=== PATIENT | female | born 1995 | race Caucasian/White ===

== ENCOUNTER 2021-02-19 06:55 | Outpatient (CLI) | payer BC, SELFPAY ==
--- NOTE | ~2021-02-19 | CT_ITS ---
EXAMINATION: CT abdomen w con DATE: 02/19/2021 07:44 INDICATION: Left upper quadrant abdominal pain. TECHNIQUE: Computed tomography (CT) of the abdomen was performed with 100 mL Omnipaque 350 intravenou s contrast. Automated exposure control and iterative reconstruction technique were employed. The dose -length product was 527.67 mGy-cm. COMPARISON: None. FINDINGS: The visualized portions of the lung bases are clear without pneumonia or pleural effusion. The heart size is normal. No pericardial effusion. The liver, gallbladder, spleen, pancreas, adrenal glands, and right kidney are normal. Left kidney is absent. There are no dilated loops of bowel. The appendix is normal. There are no pathologically enlarged lymph nodes. There is no free intraperitonea l fluid. The bones are unremarkable. IMPRESSION: 1. No etiology for the patient's symptoms. 2. Absent left kidney. Reviewed, dictated and finalized at location A.
[2021-02-19 07:34] LABS: Basophils Absolute Auto 0.1 K/mm3 (0.0-0.1); Basophils Percent Auto 0.4 % (0.2-1.2); Eosinophils Absolute Auto 0.2 K/mm3 (0-0.3); Eosinophils Percent Auto 1.8 % (0-4.4); Hematocrit 41.9 % (37.0-47.0); Hemoglobin 13.9 g/dL (12.0-15.0); Immature Granulocyte Absolute 0.03 K/mm3 (0.00-0.031); Immature Granulocyte Percent A 0.3 % (0-0.5); Lymphocytes Absolute Auto 3.36 K/mm3 (0.9-3.2); Lymphocytes Percent Auto 30.2 % (18.3-44.2); Mean Corpuscular HGB Conc 33.2 g/dl (32-36); Mean Corpuscular Hemoglobin 29.8 pg (26-34); Mean Corpuscular Volume 89.9 fl (80-100); Mean Platelet Volume 9.5 fl (7.4-10.4); Monocytes Absolute Auto 0.8 K/mm3 (0.1-0.6); Monocytes Percent Auto 6.9 % (2.6-8.5); Neutrophils Absolute Auto 6.7 K/mm3 (1.3-6.7); Neutrophils Percent Auto 60.4 % (45.5-73.1); Platelet Count Result 335 k/mm3 (150-375); Red Blood Count 4.66 M/mm3 (4.2-5.4); Red Cell Distribution Width 12.4 % (11.5-14.5); White Blood Count 11.1 K/mm3 (4.5-10.0)
[2021-02-19 07:47] LABS: Alanine Aminotransferase 13 U/L (4-35); Albumin Level 4.2 g/dL (3.5-5.1); Alkaline Phosphatase 57 U/L (38-126); Amylase 67 U/L (30-110); Anion Gap 9 mmol/L (8-16); Aspartate Amino Transferase 21 U/L (14-36); Bilirubin,Total 0.4 mg/dL (0.2-1.3); Blood Urea Nitrogen 14 mg/dL (7-17); Calcium 8.8 mg/dL (8.4-10.2); Carbon Dioxide 23 mmol/L (22-30); Chloride 107 mmol/L (98-107); Estimated Glomerular Filt Rate > 60; Glucose 96 mg/dL (65-105); Lipase 88 U/L (23-300); Potassium 4.1 mmol/L (3.4-5.0); Sodium 139 mmol/L (137-145)
[2021-02-19 08:26] LABS: Free T4 Free Thyroxine 0.98 ng/mL (0.78-2.19)
== END 2021-02-19 06:56 | disposition home or self-care (01) ==
PROVIDERS: PCP Nurse Practitioner Family; Visit Provider Family Medicine
DX: R10.12 Left upper quadrant pain (principal); Z90.5 Acquired absence of kidney
CPT/HCPCS: 36415; 74160; 80053; 82150; 83690; 84439; 84443; 85025; Q9967

== ENCOUNTER 2021-03-19 07:17 | Outpatient (CLI) | payer BC, SELFPAY ==
[2021-03-25 22:32] LABS: Tissue Transglutaminase IgG Ab 1 U/mL (<6)
[2021-03-25 23:58] LABS: Tissue Transglutaminase IgA Ab 1 U/mL (<4)
== END 2021-03-19 07:18 | disposition home or self-care (01) ==
PROVIDERS: PCP Nurse Practitioner Family; Visit Provider Nurse Practitioner Family
DX: R19.7 Diarrhea, unspecified (principal)
CPT/HCPCS: 36415; 83516; 87045; 87046; 87427

== ENCOUNTER 2021-05-25 02:28 | Day surgery (SDC) | payer BC, SELFPAY ==
[2021-05-25 08:53] VITALS: BP 127/77; PULSE 59; RESP 18; TEMP 36.7; O2SAT 99
--- NOTE | 2021-05-25 09:07 | WPDANESEPPF ---
Anes - Initial Pre Proc Eval Procedure: Operation Date: 05/25/21 09:30 Proposed Procedures p Colonoscopy - Blair Medrano MD Date/Time: 05/25/21 09:07 Surgeon: Blair Medrano MD Pre Op Diagnosis: diarrhea Patient Data Age: 25 Gender: F Height: 1.78 m Weight: 95 kg Last Vital Signs Temp 36.7 C 05/25/21 08:53 Pulse 59 L 05/25/21 08:53 Resp 18 05/25/21 08:53 BP 127/77 05/25/21 08:53 Pulse Ox 99 05/25/21 08:53 Allergies Allergy/AdvReac Type Severity Reaction Status Date / Time No Known Allergies Allergy Verified 05/04/21 12:05 Home Medications Medication Instructions Recorded Confirmed Type norethindrone 1 mg-ethinyl 1 tablet PO DAILY 10/15/19 05/04/21 History estradiol 20 mcg (24)-iron 75 mg (4) tablet dicyclomine 20 mg tablet 20 mg PO QID PRN #60 tablet 02/12/21 05/04/21 Rx omeprazole 20 mg capsule,delayed 20 mg PO DAILY #30 cap 02/12/21 05/04/21 Rx release Patient hx anesthesia problems: none Family hx anesthesia problems: none PMFSH Past Medical History Medical History Congenital single kidney GERD (gastroesophageal reflux disease) Obesity (BMI 30.0-34.9) Surgical History Surgical History (Updated 05/25/21 @ 09:07 by Donta Hernandez MD) H/O arthroscopic knee surgery Family History Family History Other Diabetes mellitus Family history of Parkinson's disease Family history of arthritis Family history of cardiovascular disease Family history of emphysema Hypertension Social History Social History Smoking status: Never smoker Tobacco type: cigarettes Alcohol intake: current Alcohol use details: socially Substance use: never Substance use type: does not use Living arrangements: with family Gender identity (if verbalized by the patient): Female Spiritual care concerns: No Anes - Eval Final PreProcedure Day of Procedure 05/25/21 09:07 Patient weight: obese Heart: regular rate and rhythm Lungs: clear to auscultation Airway: Mallampati scale class 1 Neurological: alert and oriented Last oral intake: >/= 8 hours ASA classification: II Emergent: no Anesthetic plan: proceed Anesthesia type and monitoring: general GIVS and standard monitoring Informed Consent: The patient's anesthetic plan and its attendant risks and benefits were discussed with the patient/family/POA. Questions were solicited and answers provided to the satisfaction of the patient/family/POA.
[2021-05-25] MEDS: LACTATED RINGERS 1,000 ML 150 ML IV CONT (09:10)
--- NOTE | 2021-05-25 09:45 | PM.HPGS ---
History of Present Illness History of Present Illness Consent: Risks, benefits, and alternatives have been discussed and questions answered. Patient agrees to proceed with procedure. Chief complaint: diarrhea Narrative: Shana Keating is a 25 year old female with intermittent post-prandial diarrhea with abdominal pain, serology for celiac was negative. Better after she discontinued using omeprazole Review of Systems Constitutional: Constitutional: Denies headache(s) and Denies weakness Eyes: Eyes: Denies blurry vision ENT: Reports Normal hearing present, Denies headache(s) and Denies neck pain Cardiovascular: Cardiovascular: Denies chest pain and Denies dyspnea Respiratory: Respiratory: Denies dyspnea Gastrointestinal: Gastrointestinal: Reports no additional gastrointestinal complaints Genitourinary: Genitourinary: Denies dysuria Musculoskeletal: Musculoskeletal: Denies neck pain Integumentary/Breasts: Skin/Breast: Denies dry skin Neurologic: Reports Normal hearing present, Denies headache(s) and Denies weakness Psychiatric: Psychiatric: Denies anxiety Endocrine: Endocrine: Denies change in body appearance Hematologic/Lymphatic: Hematologic/Lymphatic: Denies easy bleeding Allergic/Immunologic: Allergic/Immunologic: Denies urticaria PMFSH Past Medical History Medical History (Updated 05/25/21 @ 09:46 by Blair Medrano MD) Congenital single kidney Diarrhea GERD (gastroesophageal reflux disease) Obesity (BMI 30.0-34.9) Surgical History Surgical History (Updated 05/25/21 @ 09:07 by Donta Hernandez MD) H/O arthroscopic knee surgery Family History Family History Other Diabetes mellitus Family history of Parkinson's disease Family history of arthritis Family history of cardiovascular disease Family history of emphysema Hypertension Social History Social History Smoking status: Never smoker Tobacco type: cigarettes Alcohol intake: current Alcohol use details: socially Substance use: never Substance use type: does not use Living arrangements: with family Gender identity (if verbalized by the patient): Female Spiritual care concerns: No Meds Home Medications and Allergies Home Medications Medication Instructions Recorded Confirmed Type norethindrone 1 mg-ethinyl 1 tablet PO DAILY 10/15/19 05/04/21 History estradiol 20 mcg (24)-iron 75 mg (4) tablet dicyclomine 20 mg tablet 20 mg PO QID PRN #60 tablet 02/12/21 05/04/21 Rx omeprazole 20 mg capsule,delayed 20 mg PO DAILY #30 cap 02/12/21 05/04/21 Rx release Allergies Allergy/AdvReac Type Severity Reaction Status Date / Time No Known Allergies Allergy Verified 05/04/21 12:05 Vital Signs Vital Signs - 24 hr 05/25/21 08:53 Temperature 98.1 F Pulse Rate 59 L Respiratory Rate 18 Blood Pressure 127/77 Pulse Oximetry 99 Exam Const: General: comfortable and no acute distress HENMT: General nose exam: Normal nares present Eyes: General: appearance normal, both eyes and all related structures Neck: Neck: no JVD Resp: Auscultation: clear to auscultation bilaterally Cardio: Rate: regular rate Rhythm: regular rhythm GI: Inspection: non-distended GI Palp: Yes Soft to palpation Skin: General skin exam: normal color Neuro: General: gait normal Speech: normal speech Extrem: General: normal to inspection Psych: Mental Status: mental status grossly normal Assessment and Plan Assessment and plan (1) Diarrhea: Code(s): R19.7 - Diarrhea, unspecified Status: Acute Assessment and Plan: colonoscopy with random colon bx
[2021-05-25 10:09] VITALS: BP 92/50; PULSE 74; RESP 21; O2SAT 100
[2021-05-25 10:19] VITALS: BP 119/75; PULSE 61; RESP 21; O2SAT 100
[2021-05-25 10:29] VITALS: BP 104/64; PULSE 62; RESP 15; O2SAT 100
== END 2021-05-25 10:30 | disposition home or self-care (01) ==
PROVIDERS: PCP Nurse Practitioner Family; Visit Provider Internal Medicine Gastroenterology
PROC: 0DJD8ZZ Inspection of Lower Intestinal Tract, Via Natural or Artificial Opening Endoscopic (ICD-10-PCS; CPT 45378; principal; 2021-05-25 09:30)
DX: R19.7 Diarrhea, unspecified (principal); R14.0 Abdominal distension (gaseous); K64.8 Other hemorrhoids; K21.9 Gastro-esophageal reflux disease without esophagitis; Q60.0 Renal agenesis, unilateral; E66.9 Obesity, unspecified; Z68.30 Body mass index [BMI] 30.0-30.9, adult
CPT/HCPCS: 45380; 88305; J2704; J7120

== ENCOUNTER → 2023-04-06 10:12 | Outpatient (CLI) | payer OTHER, SELFPAY ==
--- NOTE | ~2023-04-06 | US_ITS ---
EXAMINATION: US OB transvaginal DATE: 04/06/2023 10:35 INDICATION: . Uncertain dates. TECHNIQUE: Real-time transvaginal pelvic ultrasound was performed. COMPARISON: None. FINDINGS: The uterus measures 9.5 x 5.2 x 5.0 cm. There is an intrauterine gestational sac. A yolk sac is ident ified. The crown rump length measures 9 mm, which correlates with an estimated gestational age of 6 weeks and 6 day(s) (+/-) 4 day(s). heart motion is not identified by M-mode Doppler. The right ovary measures 3.9 x 2.5 x 3.9 cm. The left ovary is not visualized. There is trace free fluid in the pelvis. IMPRESSION: 1. demise. Reviewed, dictated and finalized at location A. IMPRESSION: 1. demise.
== END ==
PROVIDERS: PCP Advanced Practice Midwife; Visit Provider Advanced Practice Midwife
DX: O02.1 Missed abortion (principal); Z3A.01 Less than 8 weeks gestation of pregnancy
CPT/HCPCS: 76817

== ENCOUNTER 2023-04-08 07:32 | Outpatient (RCR) | payer OTHER, SELFPAY | END 2023-07-05 23:59 | disposition home or self-care (01) | LOC: ANHLAB 07:32 | PROVIDERS: PCP Advanced Practice Midwife; Visit Provider Advanced Practice Midwife | DX: O03.9 Complete or unspecified spontaneous abortion without complication (principal) | CPT/HCPCS: 36415; 84702 ==

== ENCOUNTER 2023-04-08 17:12 | Outpatient (RCR) | payer OTHER, SELFPAY | END 2023-07-07 23:59 | disposition home or self-care (01) | LOC: ANHLAB 17:12 | PROVIDERS: PCP Advanced Practice Midwife; Visit Provider Obstetrics & Gynecology Gynecology | DX: O02.1 Missed abortion (principal) | CPT/HCPCS: 36415; 84702; 85461; 86850; 86900; 86901 ==

== ENCOUNTER 2023-05-03 09:43 | Outpatient (RCR) | payer OTHER, SELFPAY ==
[2023-05-03 10:51] LABS: Beta HCG Quantitative 4.32 mIU/ML
== END 2023-07-14 23:59 | disposition home or self-care (01) ==
LOC: ANHLAB 09:43
PROVIDERS: PCP Advanced Practice Midwife; Visit Provider Obstetrics & Gynecology Gynecology
DX: O02.1 Missed abortion (principal)
CPT/HCPCS: 36415; 84702

== ENCOUNTER 2023-09-22 14:43 | Outpatient (CLI) | payer OTHER, SELFPAY ==
--- NOTE | 2023-09-22 | ECG_ITS ---
Measurements Intervals [place] Rate: 73 P: 57 UT: 163 QRS: 64 QRSD: 89 T: 6 QT: 394 QTc: 435 Interpretive Statements SINUS RHYTHM BORDERLINE ST-T WAVE ABNORMALITY- INFERIOR LEADS BORDERLINE ECG NO PREVIOUS ECG AVAILABLE FOR COMPARISON Electronically Signed On 09-22-2023 15:15:59 PIPE [employer]AYER by Augie Pfeiffer D.O.
== END 2023-09-22 14:44 | disposition home or self-care (01) ==
LOC: ANHIMG 14:45 → ANHCARD 14:46
PROVIDERS: PCP Family Medicine; Visit Provider Obstetrics & Gynecology
DX: R00.2 Palpitations (principal)
CPT/HCPCS: 93005

== ENCOUNTER 2024-01-19 17:00 | Inpatient (IN) | payer OTHER, SELFPAY ==
[2024-01-19] VITALS (27 sets, daily range): BP systolic 122–163; BP diastolic 69–116; PULSE 53–64; RESP 16; TEMP 36.5–36.7; O2SAT 92–95; BMI 40.1
[2024-01-19] MEDS: DINOPROSTONE 10 MG VAG INSERT VAGINAL (17:57)
[2024-01-19 18:01] LABS: Basophils Absolute Auto 0.1 K/mm3 (0.0-0.1); Basophils Percent Auto 0.4 % (0.2-1.2); Eosinophils Absolute Auto 0.1 K/mm3 (0-0.3); Eosinophils Percent Auto 0.8 % (0-4.4); Immature Granulocyte Absolute 0.04 K/mm3 (0.00-0.031); Immature Granulocyte Percent A 0.3 % (0-0.5); Lymphocytes Absolute Auto 4.13 K/mm3 (0.9-3.2); Mean Corpuscular HGB Conc 32.4 g/dl (32-36); Mean Corpuscular Hemoglobin 27.4 pg (26-34); Mean Corpuscular Volume 84.8 fl (80-100); Mean Platelet Volume 12.3 fl (7.4-10.4); Monocytes Absolute Auto 0.9 K/mm3 (0.1-0.6); Neutrophils Absolute Auto 7.3 K/mm3 (1.3-6.7); Neutrophils Percent Auto 58.5 % (45.5-73.1); Platelet Count Result 260 k/mm3 (150-375); Red Blood Count 4.01 M/mm3 (4.2-5.4); Red Cell Distribution Width 13.1 % (11.5-14.5); White Blood Count 12.5 K/mm3 (4.5-10.0)
[2024-01-19 18:10] LABS: Alanine Aminotransferase 21 U/L (6-35); Albumin Level 2.8 g/dL (3.5-5.1); Alkaline Phosphatase 178 U/L (38-126); Anion Gap 5 mmol/L (8-16); Aspartate Amino Transferase 34 U/L (14-36); Bilirubin,Total 0.2 mg/dL (0.2-1.3); Blood Urea Nitrogen 21 mg/dL (7-17); Calcium 8.7 mg/dL (8.4-10.2); Carbon Dioxide 18 mmol/L (22-30); Chloride 110 mmol/L (98-107); Estimated Glomerular Filt Rate 53; Glucose 84 mg/dL (65-110); Sodium 133 mmol/L (137-145); Uric Acid 10.4 mg/dL (2.5-7.5)
--- NOTE | 2024-01-19 18:10 | LDADM ---
This patient, Shana Lee, was admitted to Labor/Delivery/Recovery 108 on 01/19/24 at 17:00. Plans for labor, pain management and were discussed with patient. Patient/family oriented to hospital policies and general routines including ID bracelet, bed and alarms, visiting hours, pain management, procedures, bathroom and other care routines, personal items, smoking policy, room service/diet and guest tray routines, security routines, and visiting hours. Patient/Family are encouraged to report perceived risks to care and to ask questions if they do not understand what they are told or what they should do. See OBIX for further documentation.
--- NOTE | 2024-01-19 22:21 | PM.IMHP ---
H&P: HPI History of Present Illness Date/Time: 01/19/24 22:21 Chief Complaint: Stasis of and gestational hypertension Narrative: 28-year-old female 2 para 0 with an EDC of 3245 presents at 37 half weeks gestation confirmed by early ultrasound who presents for induction of labor secondary to elevated blood pressures per nursery and cholestasis of . She has mildly elevated bile acids. She is spilling protein and nose elevated pressures. She negative for group B strep PMFSH Past Medical History Medical History Congenital single kidney Diarrhea GERD (gastroesophageal reflux disease) Obesity (BMI 30.0-34.9) Surgical History Surgical History H/O arthroscopic knee surgery Family History Family History Grandparent Diabetes mellitus Family history of cardiovascular disease Family history of emphysema Family history of Parkinson's disease Grandparent Family history of arthritis Grandparent Family history of arthritis Other Hypertension Social History Social History Smoking packs per day: 0.5 Smoking cigarettes per day: 10.0 Years smoked: 10 Smoking pack-years: 5.00 Smoking status: Former smoker Tobacco type: cigarettes Smoking end date: 07/15/23 Alcohol intake: current Alcohol use details: socially Substance use: never Substance use type: does not use Do You Feel Safe in your Home?: Yes Lack of Transportation: No Lack of Food: Never True Current Housing: I Have Housing Concerned About Future Housing: No Difficulty Paying Gas/Electric Bills: No Difficulty Paying for Meds: No Currently Unemployed: No Education: Associate Degree Difficulty w/ Childcare or Family Care: No Living arrangements: with family Gender identity (if verbalized by the patient): Female Spiritual care concerns: No Meds Home Medications and Allergies Home Medications Medication Instructions Recorded Confirmed Type escitalopram oxalate 10 mg tablet 15 mg PO DAILY 04/12/23 01/19/24 History (Lexapro) prenat.vits,leatha,jaf-jybi-mthll 1 tablet PO DAILY 04/12/23 01/19/24 History acetaminophen 500 mg tablet 1,000 mg PO Q6H PRN Pain 01/19/24 01/19/24 History Allergies Allergy/AdvReac Type Severity Reaction Status Date / Time No Known Allergies Allergy Verified 09/15/23 09:47 Vital Signs Vital Signs - 24 hr 01/19/24 17:21 01/19/24 17:31 01/19/24 18:01 Temperature Pulse Rate 56 L 53 L 55 L Respiratory Rate Blood Pressure 144/89 H 149/96 H 147/87 H Pulse Oximetry Oxygen Delivery 01/19/24 18:16 01/19/24 18:31 01/19/24 18:46 Temperature Pulse Rate 55 L 56 L 58 L Respiratory Rate Blood Pressure 139/90 153/90 H 132/90 Pulse Oximetry Oxygen Delivery 01/19/24 19:01 01/19/24 19:16 01/19/24 19:31 Temperature 98 F Pulse Rate 55 L 61 56 L Respiratory Rate Blood Pressure 149/86 H 123/75 129/74 Pulse Oximetry 92 Oxygen Delivery 01/19/24 19:46 01/19/24 20:01 01/19/24 20:16 Temperature Pulse Rate 59 L 60 60 Respiratory Rate Blood Pressure 139/78 122/83 163/80 H Pulse Oximetry Oxygen Delivery 01/19/24 20:31 01/19/24 20:46 01/19/24 21:01 Temperature Pulse Rate 62 64 54 L Respiratory Rate Blood Pressure 158/83 H 151/92 H 148/95 H Pulse Oximetry Oxygen Delivery 01/19/24 21:16 01/19/24 21:31 01/19/24 21:37 Temperature 97.7 F Pulse Rate 54 L 57 L Respiratory Rate Blood Pressure 133/88 122/81 Pulse Oximetry Oxygen Delivery 01/19/24 21:46 01/19/24 22:01 01/19/24 22:16 Temperature Pulse Rate 58 L 58 L 57 L Respiratory Rate Blood Pressure 156/86 H 122/69 122/79 Pulse Oximetry Oxygen Delivery 01/19/24 18:05
[2024-01-20] VITALS (161 sets, daily range): BP systolic 105–167; BP diastolic 63–109; PULSE 50–99; RESP 16; TEMP 36.6–37.1; O2SAT 81–100
[2024-01-20] MEDS: LABETALOL HCL 100 MG TABLET 200 MG PO (03:10)
[2024-01-20] MEDS: OXYTOCIN 30 UNITS/NS 500 ML 30 UNITS/500 ML BAG IV CONT (05:26)
[2024-01-20] MEDS: LACTATED RINGERS 1,000 ML 125 ML IV CONT ×2 (05:27→08:30)
[2024-01-20] MEDS: fentaNYL CITRATE INJ (*CRX) 100 MCG/2 ML VIAL 50 MCG IV PUSH (05:37)
--- NOTE | 2024-01-20 05:46 | PM.OBPNLAB ---
Pain Control Date/time seen: 01/20/24 05:46 Pain control: tolerating well Pelvic Exam Dilation (cm): 2 Effacement (%): 60 station: -2 Amniotic membrane status: Leaking Comments: bps labile
[2024-01-20] MEDS: LABETALOL HCL INJ 100 MG/20 ML VIAL 20 MG IV PUSH (06:10)
[2024-01-20] MEDS: ESCITALOPRAM OXALATE 5 MG TABLET 15 MG PO (06:34)
[2024-01-20] MEDS: CALCIUM CARBONATE (TUMS) 500 MG (200 MG ELEMENTAL) PO (06:50)
--- NOTE | 2024-01-20 07:19 | WPDANESEPPF ---
Anes - Initial Pre Proc Eval Procedure: Labor Epidural Date/Time: 01/20/24 07:19 Surgeon: Donta Godinez MD Pre Op Diagnosis: Labor Pain Pre Op Diagnosis: IOL Patient Data Age: 28 Gender: F Height: 1.78 m Weight: 127 kg Last Vital Signs Temp 36.6 C 01/20/24 06:15 Pulse 66 01/20/24 07:16 Resp 16 01/19/24 19:01 BP 124/73 01/20/24 07:16 Pulse Ox 98 01/20/24 07:13 O2 Del Method Room Air 01/19/24 18:05 Allergies Allergy/AdvReac Type Severity Reaction Status Date / Time No Known Allergies Allergy Verified 09/15/23 09:47 Home Medications Medication Instructions Recorded Confirmed Type escitalopram oxalate 10 mg tablet 15 mg PO DAILY 04/12/23 01/19/24 History (Lexapro) prenat.vits,leatha,yco-olyo-dtwhg 1 tablet PO DAILY 04/12/23 01/19/24 History acetaminophen 500 mg tablet 1,000 mg PO Q6H PRN Pain 01/19/24 01/19/24 History Laboratory Tests 01/19/24 17:50 WBC 12.5 H K/mm3 (4.5-10.0) RBC 4.01 L M/mm3 (4.2-5.4) Hgb 11.0 L g/dL (12.0-15.0) Hct 34.0 L % (37.0-47.0) MCV 84.8 fl (80-100) MCH 27.4 pg (26-34) MCHC 32.4 g/dl (32-36) RDW 13.1 % (11.5-14.5) Plt Count 260 k/mm3 (150-375) MPV 12.3 H fl (7.4-10.4) Immature Gran % (Auto) 0.3 % (0-0.5) Neut % (Auto) 58.5 % (45.5-73.1) Lymph % (Auto) 33.0 % (18.3-44.2) [place] % (Auto) 7.0 % (2.6-8.5) Eos % (Auto) 0.8 % (0-4.4) Baso % (Auto) 0.4 % (0.2-1.2) Lymph # (Auto) 4.13 H K/mm3 (0.9-3.2) [place] # (Auto) 0.9 H K/mm3 (0.1-0.6) Eos # (Auto) 0.1 K/mm3 (0-0.3) Baso # (Auto) 0.1 K/mm3 (0.0-0.1) Abs Immat Gran (auto) 0.04 H K/mm3 (0.00-0.031) Absolute Neuts (auto) 7.3 H K/mm3 (1.3-6.7) Absolute Nucleated RBC 0.0 K/mm3 (0.0-0.012) Nucleated RBC % 0.0 % (0.0-0.2) Sodium 133 L mmol/L (137-145) Potassium 4.0 mmol/L (3.4-5.0) Chloride 110 H mmol/L (98-107) Carbon Dioxide 18 L mmol/L (22-30) Anion Gap 5 L mmol/L (8-16) BUN 21 H mg/dL (7-17) Creatinine 1.20 H mg/dL (0.7-1.0) Estim Creat Clear Calc Not Reportable Estimated GFR 53 L (59 - ) Glucose 84 mg/dL (65-110) Uric Acid 10.4 H mg/dL (2.5-7.5) Calcium 8.7 mg/dL (8.4-10.2) Total Bilirubin 0.2 mg/dL (0.2-1.3) AST 34 U/L (14-36) ALT 21 U/L (6-35) Alkaline Phosphatase 178 H U/L (38-126) Total Protein 6.0 L g/dL (6.3-8.2) Albumin 2.8 L g/dL (3.5-5.1) RPR Pending Blood Type B Positive Antibody Screen Negative : gestational age (EMELIA 01/17/24) Patient hx anesthesia problems: none Family hx anesthesia problems: none Results Review: All pre-operative results and documents have been reviewed as part of the pre-operative evaluation. [facility] Past Medical History Medical History Congenital single kidney Diarrhea GERD (gastroesophageal reflux disease) Obesity (BMI 30.0-34.9) Surgical History Surgical History H/O arthroscopic knee surgery Family History Family History Grandparent Diabetes mellitus Family history of cardiovascular disease Family history of emphysema Family history of Parkinson's disease Grandparent Family history of arthritis Grandparent Family history of arthritis Other Hypertension Social History Social History Smoking packs per day: 0.5 Smoking cigarettes per day: 10.0 Years smoked: 10 Smoking pack-years: 5.00 Smoking status: Former smoker Tobacco type: cigarettes Smoking end date: 07/15/23 Alcohol intake: current Alcohol use details: socially Substance use: never Substance use type: does not use Do You Feel Safe in your Home?:
[2024-01-20] MEDS: fentaNYL CITRATE INJ (*CRX) 100 MCG/2 ML VIAL IV PUSH (07:20)
--- NOTE | 2024-01-20 10:35 | PM.OBPNLAB ---
Pain Control Date/time seen: 01/20/24 10:35 Pain control: tolerating well and epidural Pelvic Exam Dilation (cm): 6 Effacement (%): 90 station: -2 Amniotic membrane status: Leaking
[2024-01-20] MEDS: FAMOTIDINE 20 MG/2 ML VIAL IV PUSH (10:36)
--- NOTE | 2024-01-20 13:05 | PM.OBPRVD ---
OB - Vaginal Delivery Note Procedure Delivery date: 01/20/24 Events: Gestational Hypertension and Other (Cholestasis of ) Induction method: Per Cervidil Protocol Delivery augmentation: Pitocin Delivery monitor: External FHT and Internal Uterine Route of delivery: Episiotomy description: None Laceration Description: None Specimen: No Quantitative Blood Loss (ml): 61 Anesthesia type: Epidural Disposition: Floor Complications: No immediate complications Baby Date of : 01/20/24 Time of : 12:48 Weeks of gestation at delivery: 37 Infant gender: Male presentation: vertex position: Right Occiput Anterior Placenta delivery description: Spontaneous Cord Vessel Description: 3 Vessels, Nuchal Cord and Loose score one minute: 6 score five minutes: 9
--- NOTE | 2024-01-20 13:08 | PM.DS ---
DS: Admitting Diagnosis Discharge Date 01/22/24 Admitting Diagnosis term /gestational hypertension/ cholestasis of DS: Discharge Diagnosis Discharge Diagnosis (1) Cholestasis during : Code(s): O26.619 - Liver and biliary tract disorders in , unspecified trimester; K83.1 - Obstruction of bile duct Status: Acute (2) Gestational hypertension: Code(s): O13.9 - Gestational [-induced] hypertension without significant proteinuria, unspecified trimester Status: Acute (3) Term : Code(s): Z34.90 - Encounter for supervision of normal , unspecified, unspecified trimester Status: Acute DS: Summary Hospital Course Reason for hospitalization: patient was admitted on 01/19/2024 for induction of labor secondary to cholestasis of and elevated blood pressure with elevated uric acid a and creatinine. She underwent spontaneous vaginal delivery which was unremarkable. Hospital Course: Her hospital course unremarkable. She remained the id, ambulating the eating a regular diet, voiding without difficulty, generally without complaints Time Spent with Patient Time attestation: Total time spent providing and/or coordinating discharge services: Exam Const: General: cooperative, healthy appearing and comfortable Orientation/consciousness: oriented to person, oriented to place and oriented to time Resp: Effort & Inspection: normal respiratory effort Cardio: Rate: regular rate Rhythm: regular rhythm Heart sounds: S1 normal heart sound present and S2 normal heart sound present GI: Inspection: normal to inspection DS: Data Data Completed and Pending Labs on day of discharge: Labs from last 24 hours 01/19/24 17:50 WBC 12.5 H RBC 4.01 L Hgb 11.0 L Hct 34.0 L MCV 84.8 MCH 27.4 MCHC 32.4 RDW 13.1 Plt Count 260 MPV 12.3 H Immature Gran % (Auto) 0.3 Neut % (Auto) 58.5 Lymph % (Auto) 33.0 [place] % (Auto) 7.0 Eos % (Auto) 0.8 Baso % (Auto) 0.4 Lymph # (Auto) 4.13 H [place] # (Auto) 0.9 H Eos # (Auto) 0.1 Baso # (Auto) 0.1 Abs Immat Gran (auto) 0.04 H Absolute Neuts (auto) 7.3 H Absolute Nucleated RBC 0.0 Nucleated RBC % 0.0 Sodium 133 L Potassium 4.0 Chloride 110 H Carbon Dioxide 18 L Anion Gap 5 L BUN 21 H Creatinine 1.20 H Estim Creat Clear Calc Not Reportable Estimated GFR 53 L Glucose 84 Uric Acid 10.4 H Calcium 8.7 Total Bilirubin 0.2 AST 34 ALT 21 Alkaline Phosphatase 178 H Total Protein 6.0 L Albumin 2.8 L RPR Pending Blood Type B Positive Antibody Screen Negative Discharge Plan Discharge Attending physician on discharge: Donta Rico Discharging Clinician: Heidi Rodriguez Anticipated Discharge Date/Time: 01/22/24 10:28 Patient Disposition: Home, Self-Care Activity: may shower, no straining and pelvic rest Diet: heart healthy Wound Care Instructions: follow printed instructions Discharge Instructions: Blood Pressure Instructions Check your BP at home daily. Keep a log and bring to your next visit. Report any BP readings over 160/110 to provider immediately. (Please call if either number is elevated) Headache that does not improve with 2 Extra Strength Tylenol Visual changes such as blurred vision or flashes of light Pain under the right breast Significant increase in swelling with any of the above symptoms * Make sure you are sitting for at least 5 minutes before checking your blood pressure. Keep legs uncrossed and avoid talking while taking your blood pressure. make appointment with Primary care provider to discuss your creatinine levels. Education: Mom and Baby Guide Given to: Mother Follow-Up: Call your delivering provider's office for an appointment to be seen in: 4 Weeks Mom and baby should come to the [facility] for the follow-up appointment. Appointment Date/Yoshi
[2024-01-20] MEDS: OXYTOCIN 30 UNITS/NS 500 ML 30 UNITS/500 ML BAG 125 UNITS IV CONT (13:22)
[2024-01-20] MEDS: LORATADINE 10 MG TABLET PO (13:32)
[2024-01-20] MEDS: WITCH HAZEL 40 PADS 1 PAD TOPICAL ×2 (15:32→18:27)
[2024-01-20] MEDS: BENZOCAINE 20% AER SPR (*SP) 56 GM CAN 1 SPRAY TOPICAL (15:33)
[2024-01-20] MEDS: IBUPROFEN 600 MG TABLET PO (15:36)
[2024-01-20 16:20] LABS: Rapid Plasma Reagin Non-Reactive (NonReactive)
[2024-01-20] MEDS: DOCUSATE SODIUM 100 MG CAPSULE PO (18:27)
[2024-01-20] MEDS: LANOLIN (LANSINOH) 7.5 GM CREAM 1 APPLIC TOPICAL (18:27)
[2024-01-21 00:08] VITALS: BP 149/91; PULSE 69; RESP 16; TEMP 36.8; O2SAT 97
[2024-01-21 05:35] LABS: Hematocrit 33.3 % (37.0-47.0); Hemoglobin 10.5 g/dL (12.0-15.0)
[2024-01-21 05:40] VITALS: BP 143/84; PULSE 80
[2024-01-21] MEDS: ESCITALOPRAM OXALATE 10 MG TABLET (07:32)
[2024-01-21] MEDS: ESCITALOPRAM OXALATE 5 MG TABLET (07:32)
[2024-01-21] MEDS: ACETAMINOPHEN 325 MG TABLET 650 MG PO ×3 (07:33→23:21)
[2024-01-21] MEDS: DOCUSATE SODIUM 100 MG CAPSULE PO ×2 (07:33→15:51)
[2024-01-21] MEDS: MULTIVIT/MIN/PREN/FOL AC/IRON TABLET 1 TAB PO (07:33)
[2024-01-21] MEDS: BENZOCAINE 20% AER SPR (*SP) 56 GM CAN 1 SPRAY TOPICAL (07:34)
[2024-01-21 07:51] VITALS: BP 143/79; PULSE 66; RESP 18; TEMP 36.7; O2SAT 98
--- NOTE | 2024-01-21 10:09 | PM.OBPNVD ---
OB - PN: Subj Subjective Date/time seen: 01/21/24 10:09 Patient comments: no complaints baby status: doing well OB - PN: Obj Data Labs 01/21/24 05:29 01/19/24 17:50 Labs: Laboratory Results - last 24 hr 01/19/24 01/21/24 17:50 05:29 Hgb 10.5 L Hct 33.3 L RPR Non-reactive OB - PN A/P Plan day: 1 Plan: routine care Comments: Elevated Cr at 1.2-last one in the computer was 02/2021-0.9. With elevated Cr, cholestasis, and gest HTN will recheck CMP now and observe BP and symptoms overnight. Time Spent With Patient Time: Total time spent is greater than 50% in coordination of care (as documented) at patient's floor/unit and/or counseling patient: Exam : Bimanual exam- vagina & uterus: other (Uterus firm, nt @U)
[2024-01-21 10:35] LABS: Alanine Aminotransferase 23 U/L (6-35); Albumin Level 2.6 g/dL (3.5-5.1); Alkaline Phosphatase 148 U/L (38-126); Anion Gap 2 mmol/L (8-16); Aspartate Amino Transferase 42 U/L (14-36); Bilirubin,Total 0.2 mg/dL (0.2-1.3); Blood Urea Nitrogen 14 mg/dL (7-17); Calcium 8.1 mg/dL (8.4-10.2); Carbon Dioxide 22 mmol/L (22-30); Chloride 111 mmol/L (98-107); Estimated CRCL calculation 90 ml/min; Estimated Glomerular Filt Rate 53; Glucose 111 mg/dL (65-110); Sodium 135 mmol/L (137-145)
--- NOTE | 2024-01-21 10:37 | WPDANLDPN2 ---
Anes-Prog Note L&D Date/Time: 01/21/24 10:37 Comfortable throughout: labor and delivery Neuraxial method: epidural Epidural/Spinal procedure site: clean & non-tender Neuro status: Neuro function grossly intact. Cardiovascular status: normal Respiratory status: normal Airway patency: baseline Mental status: baseline Post-Op hydration status: normal Vital Signs: Last Vital Signs Temp 36.7 C 01/21/24 07:51 Pulse 66 01/21/24 07:51 Resp 18 01/21/24 07:51 BP 143/79 H 01/21/24 07:51 Pulse Ox 98 01/21/24 07:51 O2 Del Method Room Air 01/19/24 18:05 Pain score (VAS): 11/23 I/O: Intake & Output 01/20/24 01/21/24 01/21/24 23:59 07:59 15:59 Intake Total 600 960 Output Total 1080 Balance 600 -120 Post-procedural complaints: none Patient feedback: Patient satisfied with anesthetic care.
[2024-01-21 15:44] VITALS: BP 140/86
[2024-01-21 20:00] VITALS: BP 140/87; PULSE 66; RESP 18; TEMP 36.9; O2SAT 97
[2024-01-22 04:00] VITALS: BP 132/70
[2024-01-22] MEDS: MULTIVIT/MIN/PREN/FOL AC/IRON TABLET 1 TAB PO (07:42)
[2024-01-22] MEDS: ACETAMINOPHEN 325 MG TABLET 650 MG PO (07:42)
[2024-01-22] MEDS: DOCUSATE SODIUM 100 MG CAPSULE PO (07:42)
[2024-01-22 09:05] VITALS: BP 156/90; PULSE 72; RESP 18; TEMP 36.7; O2SAT 99
--- NOTE | 2024-01-22 10:23 | PM.OBPNVD ---
OB - PN: Subj Subjective Date/time seen: 01/22/24 0935 Interval history: Doing well. Urinating without difficulty. Denies passing any large clots. Denies dizziness with ambulating. Tolerating po food and fluids. Bonding with . Does endorse mild headache, no visual changes, or RUQ pain. Patient comments: no complaints and pain well controlled baby status: doing well and nursing well feeding status: breast and bottle feeding (supplementing due to weight loss) OB - PN: Obj Data Labs 01/21/24 05:29 01/21/24 10:04 Labs: Laboratory Results - last 24 hr 01/21/24 10:04 Sodium 135 L Potassium 4.0 Chloride 111 H Carbon Dioxide 22 Anion Gap 2 L BUN 14 D Creatinine 1.20 H Estim Creat Clear Calc 90 Estimated GFR 53 L Glucose 111 H Calcium 8.1 L Total Bilirubin 0.2 AST 42 H ALT 23 Alkaline Phosphatase 148 H Total Protein 6.0 L Albumin 2.6 L OB - PN A/P Assessment and Plan (1) Cholestasis during : Qualifiers: Trimester: third trimester Qualified Code(s): O26.613 - Liver and biliary tract disorders in , third trimester; K83.1 - Obstruction of bile duct Code(s): O26.619 - Liver and biliary tract disorders in , unspecified trimester; K83.1 - Obstruction of bile duct Status: Acute (2) Gestational hypertension: Qualifiers: Trimester: third trimester Qualified Code(s): O13.3 - Gestational [-induced] hypertension without significant proteinuria, third trimester Code(s): O13.9 - Gestational [-induced] hypertension without significant proteinuria, unspecified trimester Status: Acute (3) Congenital single kidney: Code(s): 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 Mood is pleasant and cooperative. Perineum with minimal edema. Fundus firm and below umbilicus. Const: General: cooperative, healthy appearing, no acute distress and alert Orientation/consciousness: patient oriented x3 Limitations: no limitations Resp: Effort & Inspection: normal respiratory effort and able to speak in complete sentences Auscultation: clear to auscultation bilaterally Cardio: Rate: regular rate GI: Inspection: normal to inspection Auscultation: normal bowel sounds : General: Yes bladder normal to palpation External Female Exam: other (lochia WNL) Bimanual exam- vagina & uterus: bladder normal to palpation Other: Fundus firm and below U Skin: General skin exam: normal color and no rashes or lesions noted Neuro: General: patient oriented x3 and moves all extremities Cognition (Neuro): normal cognition Extrem: General: normal to inspection and no calf tenderness Psych: Appearance: grossly normal Mental Status: mental status grossly normal Affect: normal affect Thought process: Normal thought process present
[2024-01-23 09:47] VITALS: BP 143/82; PULSE 61; RESP 18; TEMP 36.7; O2SAT 97
== END 2024-01-22 12:25 | disposition home or self-care (01) | DRG 805 ==
LOC: ANHLDR 01-20 13:13 → ANHOB2 01-20 16:28
PROVIDERS: Obstetrics & Gynecology Gynecology; Admitting Provider Obstetrics & Gynecology; PCP Family Medicine; Visit Provider Obstetrics & Gynecology
DX: O13.4 Gestational [pregnancy-induced] hypertension without significant proteinuria, complicating childbirth (principal); K83.1 Obstruction of bile duct; Z37.0 Single live birth; Q60.0 Renal agenesis, unilateral; O99.892 Other specified diseases and conditions complicating childbirth; Z3A.37 37 weeks gestation of pregnancy; O26.62 Liver and biliary tract disorders in childbirth; O69.81X0 Labor and delivery complicated by cord around neck, without compression, not applicable or unspecified
CPT/HCPCS: 36415; 80053; 84550; 85014; 85018; 85025; 86592; 86850; 86900; 86901; A9270; J2590; J2795; J3010; J7120

== ENCOUNTER 2024-01-24 14:16 | Outpatient (CLI) | payer OTHER, SELFPAY ==
--- NOTE | ~2024-01-24 | US_ITS ---
EXAMINATION: US venous doppler [facility] DATE: 01/24/2024 15:20 INDICATION: Left lower limb swelling. TECHNIQUE: Grayscale ultrasound images without and with compression and Doppler ultrasound images of the left lower extremity veins were obtained. COMPARISON: None. FINDINGS: The visualized portions of left common femoral vein, profunda (deep) femoral vein, femoral vein, popl iteal vein, peroneal veins, posterior tibial veins, and greater saphenous vein outflow are patent. IMPRESSION: 1. No deep venous thrombosis. Reviewed, dictated and finalized at location A.
== END 2024-01-24 14:17 | disposition home or self-care (01) ==
LOC: ANHIMG 14:21
PROVIDERS: PCP Family Medicine; Visit Provider Obstetrics & Gynecology
DX: R22.42 Localized swelling, mass and lump, left lower limb (principal)
CPT/HCPCS: 93971